=== PATIENT | female | born 1995 | race Caucasian/White ===

== ENCOUNTER 2019-04-27 09:58 | Inpatient (IN) | payer OTHER ==
[~2019-04-27] VITALS: Ht 162.6 cm; Wt 57.6 kg
== END 2019-05-04 18:35 | disposition home or self-care (01) | DRG 866 ==
LOC: ER 09:58 → SEC-K 16:00 → MEDI 16:00 → MEDJ 05-01 14:52
PROVIDERS: ADMIT Internal Medicine
DX: A90 Dengue fever [classical dengue] (principal); B17.8 Other specified acute viral hepatitis; D72.818 Other decreased white blood cell count; E86.0 Dehydration; E87.8 Other disorders of electrolyte and fluid balance, not elsewhere classified; D69.49 Other primary thrombocytopenia; D72.810 Lymphocytopenia; B96.89 Other specified bacterial agents as the cause of diseases classified elsewhere; B27.09 Gammaherpesviral mononucleosis with other complications